=== PATIENT | male | born 1990 | race Caucasian/White ===

== ENCOUNTER 2016-04-18 16:19 | Emergency (ER) | payer OTHER ==
[2016-04-18 16:27] VITALS: BP 148/85
[2016-04-18] MEDS ORDERED: NS 0.9% 1000 ML* 1,000 ML IV ONE (16:34)
[2016-04-18] MEDS ORDERED: Ondansetron INJ* 2 MG/ML VIAL IV ONE (16:34)
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
== END 2016-04-18 17:16 | disposition home or self-care (01) ==
LOC: ED 16:19
DX: B35.3 Tinea pedis (principal); X31.XXXA Exposure to excessive natural cold, initial encounter; Y93.9 Activity, unspecified; Y92.9 Unspecified place or not applicable
CPT/HCPCS: 96374; 99282

== ENCOUNTER 2016-10-28 07:36 | Emergency (ER) | payer OTHER ==
[2016-10-28 07:43] VITALS: BP 126/85
--- NOTE | 2016-10-28 14:57 | ED ---
Skin Complaint - HPI Summary HPI Summary: Patient presents to the ED with CC of right great toe with redness, pain and inflammation to the lateral side of the nail with a possible ingrown toenail. This has been present and worsening over several months. He states he has had this before. Pain is 1/10 until something touches the area which then is 5/10. Denies fevers, sweats, chills or discharge from the area for a concern over infection. He endorses similar episodes of ingrown toenail, but attempts to treat himself at home by various techniques. He states this time, the area over the toe was not going away, and wanted to get it checked out. Denies any other complaints or symptoms at this time. VS stable on arrival. Pulses +2 bilaterally and cap refill < 2 sec. Denies any numbness or tingling throughout the toe or foot. - History of Current Complaint Chief Complaint: EDExtremityLower Time Seen by Provider: 10/28/16 08:40 Stated Complaint: TOE PAIN Hx Obtained From: Patient Onset/Duration: Worse Since - 1 week ago Timing: Constant Onset Severity: Moderate Current Severity: Moderate Pain Intensity: 7 Pain Scale Used: 0-10 Numeric Skin Location: Foot Character: Redness, Painful Aggravating Symptom(s): Nothing Alleviating Symptom(s): Nothing Associated Signs & Symptoms: Negative - Allergy/Home Medications Allergies/Adverse Reactions: Allergies Allergy/AdvReac Type Severity Reaction Status Date / Time No Known Allergies Allergy Verified 04/18/16 16:27 PMH/Surg Hx/FS Hx/Imm Hx Previously Healthy: Yes Respiratory History: Reports: Hx Asthma - exercise induced Psychiatric History: Reports: Hx Anxiety, Hx Depression - Immunization History Hx Pertussis Vaccination: No Immunizations Up to Date: Unable to Obtain/Confirm Infectious Disease History: No Infectious Disease History: Denies: Traveled Outside the [place] in Last 30 Days - Family History Known Family History: Positive: None, Hypertension - Social History Occupation: Employed Full-time Lives: With Family Alcohol Use: Daily Alcohol Amount: 10 /day x 1 year Hx Substance Use: Yes Substance Use Type: Reports: Marijuana Substance Use Comment - Amount & Last Used: occassionally Hx Tobacco Use: Yes Smoking Status (MU): Light Every Day Tobacco Smoker Review of Systems Constitutional: Negative Eyes: Negative ENT: Negative Respiratory: Negative Genitourinary: Negative Positive: no symptoms reported, see HPI Positive: Other - erythema and slightly eddematous area to the latera side of the great right toe resembling an ingrown toenail, with no paronychia or felon Neurological: Negative All Other Systems Reviewed And Are Negative: Yes Physical Exam Triage Information Reviewed: Yes Vital Signs On Initial Exam: Initial Vitals Temp Pulse Resp BP Pulse Ox 97.1 F 59 18 126/85 100 10/28/16 07:40 10/28/16 07:40 10/28/16 07:40 10/28/16 07:40 10/28/16 07:40 Vital Signs Reviewed: Yes Appearance: Positive: Well-Appearing, Well-Nourished Skin: Positive: Other - right toenail - ingrown to the lateral side of the great toe Head/Face: Positive: Normal Head/Face Inspection Eyes: Positive: EOMI, BLANCA, Conjunctiva Clear Neck: Positive: Supple, No Lymphadenopathy Respiratory/Lung Sounds: Positive: Clear to Auscultation, Breath Sounds Present Cardiovascular: Positive: Normal, RRR, Pulses are Symmetrical in both Upper and Lower Extremities Neurological: Positive: Speech Normal Psychiatric: Positive: Normal AVPU Assessment: Alert - Eren Coma Scale Best Eye Response: 4 - Spontaneous Best Motor Response: 6 - Obeys Commands Best Verbal Response: 5 - Oriented Diagnostics - Vital Signs Vital Signs Temp Pulse Resp BP Pulse Ox 10/28/16 07:54 97.1 F 59 16 126/85 100 10/28/16 07:40 97.1 F 59 18 126/85 100 - Laboratory Lab Statement: Any lab studies that have been ordered have been reviewed, and results considered in the medical decision making process. Course/Dx - Course Course Of Treatment: Patient presents with erythema and slightly eddematous area to the lateral side of the great right toe resembling an ingrown toenail, with no paronychia or felon. Discussed with patient treatment options. Patient agrees to have the toenail cut and dislodged from under the skin. Timeout obtained. Wound was cleansed with betadyne. Sterile precations used. 2ml lidocaine without epi used for digital block of the great toe with effect. Maureen forceps used to raise the lateral portion of the nail. Scissors used to cut at the tip of the nail to just above the base of the nailbed. Large amount of nail was dislodged from the skin. Parameters given for care instructions and to try to prevent recurrence. Area was wrapped with a bandage and care instructions given. - Differential Diagnoses - Skin Complaint Differential Diagnoses: Other - felon, paronychia - Diagnoses Provider Diagnoses: Ingrown right big toenail Discharge - Discharge Plan Condition: Stable Disposition: HOME Patient Education Materials: Ingrown Nail (ED) Referrals: Non Staff,Doctor [Primary Care Provider] - Additional Instructions: SUMMARY AND RECOMMENDATIONS Ingrown toenails occur when the lateral nail plate pierces the lateral nail fold. Mild lesions can be treated conservatively, with soaks several times per day and the use of cotton or dental floss to separate the nail plate from the nail fold. Surgical intervention for removal of the involved nail wedge may be required for more severe cases. Apply abx ointment to the toe and wrap with gauze. Do this for 3 days Do not subject the toe to dirty areas such as shoes and socks for 1 week - this may mean you will keep it covered while at work. Keep the nail growth above the area of the skin to try to prevent recurrence Cut the toenail STRAIGHT across.
== END 2016-10-28 09:32 | disposition home or self-care (01) ==
LOC: ED 07:36
DX: L60.0 Ingrowing nail (principal)
CPT/HCPCS: 99281

== ENCOUNTER 2017-01-27 22:11 | Emergency (ER) | payer OTHER ==
[2017-01-27] MEDS ORDERED: NS 0.9% 1000 ML* 1,000 ML IV ONE (23:09)
[2017-01-27] MEDS ORDERED: Metoclopramide IV* 5 MG/ML 2 ML VIAL IV ONE (23:09)
[2017-01-27] MEDS ORDERED: Pantoprazole IV* 40 MG IV ONE (23:09)
[2017-01-27 23:47] LABS: Hematocrit 45 % (42-52); Hemoglobin 15.8 g/dl (14.0-18.0); Mean Corpuscular HGB Conc 35 g/dl (31-36); Mean Corpuscular Hemoglobin 35 pg (27-31); Mean Corpuscular Volume 99 fL (80-94); Mean Platelet Volume 7 um3 (7.4-10.4); Red Blood Count 4.57 10^6/ul (4.0-5.4); Red Cell Distribution Width 15 % (10.5-15); White Blood Count 7.2 10^3/ul (3.5-10.8)
[2017-01-28 00:02] LABS: Albumin 4.6 g/dL (3.2-5.2); BUN/Creatinine Ratio 7.6 (8-20); Calcium 8.9 mg/dL (8.6-10.3); EGFR Non-African American 120.5 (>60); Globulin 2.9 g/dL (2-4); Potassium 3.6 mmol/L (3.5-5.0); Total Bilirubin 0.3 mg/dL (0.2-1.0); Total Protein 7.5 g/dL (6.4-8.9)
--- NOTE | 2017-01-28 06:18 | ED ---
Lonny Briones Jason, scribed for Obi Cha MD on 01/27/17 at 2311 . Abdominal Pain/Male - HPI Summary HPI Summary: This patient is a 26 year old M presenting to [facility] with a chief complaint of stomach pain since 1 hour and 30 minutes ago. The patient states that he vomited blood and includes that it feels like theres something wrong with my stomach. The patient rates the pain 0/10 in severity. Symptoms aggravated by nothing. Symptoms alleviated by nothing. Patient reports right-sided chest pain. Patient denies nausea. Additionally, the patient states he has been consuming alcohol since this morning. - History of Current Complaint Chief Complaint: EDAbdPain Stated Complaint: VOMITED BLOOD,CHEST PAIN Time Seen by Provider: 01/27/17 22:41 Hx Obtained From: Patient Onset/Duration: Gradual Onset, Lasting Hours - Since 1 hour and 30 minutes ago. , Still Present Timing: Constant Pain Intensity: 0 Pain Scale Used: 0-10 Numeric Aggravating Factor(s): Nothing Alleviating Factor(s): Nothing Associated Signs And Symptoms: Positive: Other - stomach discomfort, vomiting ( with blood), and right-sided chest pain. Patient denies nausea - Allergies/Home Medications Allergies/Adverse Reactions: Allergies Allergy/AdvReac Type Severity Reaction Status Date / Time No Known Allergies Allergy Verified 01/27/17 22:18 PMH/Surg Hx/FS Hx/Imm Hx Previously Healthy: No Respiratory History: Reports: Hx Asthma - exercise induced Psychiatric History: Reports: Hx Anxiety, Hx Depression Infectious Disease History: No Infectious Disease History: Denies: Traveled Outside the [place] in Last 30 Days - Family History Known Family History: Positive: Hypertension Negative: Blood Disorder - Social History Alcohol Use: Daily Alcohol Amount: 10 /day x 1 year Hx Substance Use: Yes Substance Use Type: Reports: Marijuana Substance Use Comment - Amount & Last Used: occassionally Hx Tobacco Use: Yes Smoking Status (MU): Light Every Day Tobacco Smoker Review of Systems Positive: Chest Pain - right-sided Positive: Vomiting - with blood, Other - stomach discomfort. Negative: Nausea All Other Systems Reviewed And Are Negative: Yes Physical Exam - Summary Physical Exam Summary: VITAL SIGNS: Reviewed. GENERAL: ~Patient is a well-developed and nourished male who is lying comfortable in the stretcher. Patient is not in any acute respiratory distress. Patient's breath has odor of alcohol. HEAD AND FACE: No signs of trauma. No ecchymosis, hematomas or skull depressions. No sinus tenderness. EYES: PERRLA, EOMI x 2, No injected conjunctiva, no nystagmus. EARS: Hearing grossly intact. Ear canals and tympanic membranes are within normal limits. MOUTH: Oropharynx within normal limits. NECK: Supple, trachea is midline, no adenopathy, no JVD, no carotid bruit, no c- spine tenderness, neck with full ROM. CHEST: Symmetric, no tenderness at palpation LUNGS: Clear to auscultation bilaterally. No wheezing or crackles. CVS: Regular rate and rhythm, S1 and S2 present, no murmurs or gallops appreciated. ABDOMEN: Soft, non-tender. No signs of distention. No rebound no guarding, and no masses palpated. Bowel sounds are normal. RECTAL: brown stool sent to the lab for fecal occult blood test. EXTREMITIES: FROM in all major joints, no edema, no cyanosis or clubbing. NEURO: Alert and oriented x 3. No acute neurological deficits. Speech is normal and follows commands. SKIN: Dry and warm Triage Information Reviewed: Yes Vital Signs On Initial Exam: Initial Vitals Temp Pulse Resp BP Pulse Ox 98.5 F 78 14 149/102 99 01/27/17 22:16 01/27/17 22:16 01/27/17 22:16 01/27/17 22:16 01/27/17 22:16 Vital Signs Reviewed: Yes - Eren Coma Scale Coma Scale Total: 15 Diagnostics - Vital Signs Vital Signs Temp Pulse Resp BP Pulse Ox 01/27/17 22:16 98.5 F 78 14 149/102 99 - Laboratory Result Diagrams: 01/27/17 23:25 01/27/17 23:25 Lab Statement: Any lab studies that have been ordered have been reviewed, and results considered in the medical decision making process. Abdominal Pain Fem Course/Dx - Course Course Of Treatment: This patient is a 26 year old M presenting to [facility] with a chief complaint of stomach pain since 1 hour and 30 minutes ago. The patient states that he vomited blood and includes that it feels like theres something wrong with my stomach. The patient rates the pain 0/10 in severity. Symptoms aggravated by nothing. Symptoms alleviated by nothing. Patient reports right- sided chest pain. Patient denies nausea. Additionally, the patient states he has been consuming alcohol since this morning. Assessment/Plan: In the ED course the patient was given IV fluids. Fecal Occult Blood test result is negative. Patient is awake and comfortably walking with a steady gait. Patient will be discharged and follow up from PCP. The patient is agreeable with this plan. Dx of alcohol intoxication and alcoholic gastritis. - Diagnoses Provider Diagnoses: Alcohol intoxication, Alcoholic gastritis Discharge - Discharge Plan Condition: Stable Disposition: HOME Prescriptions: Metoclopramide TAB* [Reglan TAB*] 10 mg PO Q8H PRN #14 tab PRN Reason: Nausea/Vomiting Pantoprazole TAB (NF) [Protonix TAB (NF)] 40 mg PO DAILY #30 tab Patient Education Materials: Gastritis (ED), Alcohol Intoxication (ED), Abuse of Alcohol (ED) Referrals: Non Staff,Doctor [Primary Care Provider] - Additional Instructions: RETURN TO THE EMERGENCY DEPARTMENT FOR CHANGING OR WORSENING SYMPTOMS. The documentation as recorded by the Lonny edwards Jason accurately reflects the service I personally performed and the decisions made by , Obi Cha MD.
[2017-01-28 06:31] VITALS: BP 138/89
== END 2017-01-28 06:30 | disposition home or self-care (01) ==
LOC: ED 22:11
DX: F10.129 Alcohol abuse with intoxication, unspecified (principal); K29.20 Alcoholic gastritis without bleeding; R11.10 Vomiting, unspecified; R07.9 Chest pain, unspecified; F17.210 Nicotine dependence, cigarettes, uncomplicated
CPT/HCPCS: 36415; 80053; 80320; 82150; 82272; 83690; 83735; 85025; 85610; 85730; 86850; 86900; 86901; 96374; 96375; 99284; G0480; J2765

== ENCOUNTER 2017-05-30 13:54 | Observation (INO) | payer OTHER ==
[2017-05-30] MEDS ORDERED: fentaNYL* 50 MCG/ML 2 ML VIAL (100 MCG VIAL) IV SLOW PU ONE (14:21)
[2017-05-30] MEDS ORDERED: Ondansetron INJ* 2 MG/ML VIAL IV ONE (14:21)
[2017-05-30] MEDS ORDERED: LORazepam INJ* 2 MG/ML 1 ML VIAL ONE (14:33)
[2017-05-30] MEDS ORDERED: LORazepam INJ* 2 MG/ML 1 ML VIAL IV ONE (14:55)
--- NOTE | 2017-05-30 14:57 | RAD ---
HISTORY: Left shoulder injury COMPARISONS: None VIEWS: 3, Frontal internal rotation, external rotation, and outlet views of the left shoulder FINDINGS: BONE DENSITY: Normal. BONES: There is no displaced fracture. JOINTS: There is no arthropathy. ALIGNMENT: There is anterior-inferior dislocation of the humeral head with respect to the glenoid fossa. SOFT TISSUES: Unremarkable. OTHER FINDINGS: None. IMPRESSION: LEFT SHOULDER DISLOCATION
--- NOTE | 2017-05-30 14:59 | RAD ---
INDICATION: Left shoulder pain after a fall COMPARISON: None. TECHNIQUE: Single AP portable view of the chest was obtained. FINDINGS: Image quality is compromised due to the relative inferiority of a portable chest x-ray. The heart and mediastinum exhibit normal size and contour. The lungs are grossly clear. There is no evidence of a large pleural effusion. Left humeral head appears to be displaced medially relative to the bony glenoid labrum on the AP view. IMPRESSION: 1. No radiographic evidence for acute cardiopulmonary abnormality on this portable chest x-ray. 2. Left humeral head appears to be displaced inferiorly and medially relative to the bony glenoid labrum on this AP only view of the chest.
[2017-05-30 15:13] LABS: ABS Basophils 0.1 10^3/ul (0-0.2); ABS Eosinophils 0 10^3/ul (0-0.6); ABS Lymphocytes 1.1 10^3/ul (1.0-4.8); ABS Neutrophils 9.6 10^3/ul (1.5-7.7); ABS Nucleated RBC 0 10^3/ul; Eosinophil % 0.2 % (0-6); Hematocrit 45 % (42-52); Hemoglobin 15.2 g/dl (14.0-18.0); Lymphocyte % 9.1 % (25-47); Mean Corpuscular HGB Conc 34 g/dl (31-36); Mean Corpuscular Hemoglobin 35 pg (27-31); Mean Corpuscular Volume 102 fL (80-94); Nucleated Red Blood Cells % 0; Platelet Count 186 10^3/ul (150-450); Red Blood Count 4.38 10^6/ul (4.0-5.4); Red Cell Distribution Width 14 % (10.5-15); White Blood Count 11.8 10^3/ul (3.5-10.8)
--- NOTE | 2017-05-30 15:21 | RAD ---
Indication: New onset seizure post fall. Comparison: No relevant prior exams available on the [facility] PACS for comparison. Technique: Noncontrast CT vertex of skull through foramen magnum. Report: The sulci, ventricles, and basal cisterns are normal for age. Yuen matter white matter differentiation is preserved without evidence for edema. Reference axial image 14 of 36 there is short segment bilateral symmetric approximate 2 mm transverse thickness isodense to pope matter extra-axial meningeal thickening at the middle cranial fossa. This is a low suspicion nonspecific finding. There is no hyperdense extra-axial collection to indicate extra-axial hematoma. Negative for mass effect. Unremarkable visualized orbital contents. No fracture of the calvarium or skull base evident. Unremarkable scalp. The visualized paranasal sinuses and mastoid air spaces are clear. IMPRESSION: 1. Low suspicion potentially incidental normal finding of minimal prominence of the meninges of the bilateral temporal regions. Consider further assessment with contrast-enhanced MRI given the clinical setting of new onset seizure. 2. No compelling CT evidence for traumatic brain injury.
[2017-05-30 15:24] LABS: INR 0.94 (0.77-1.02)
--- NOTE | 2017-05-30 15:27 | RAD ---
INDICATION: Fall. Seizure. LEFT shoulder injury. COMPARISON: No relevant prior exams available on the [facility] PACS for comparison. TECHNIQUE: Multidetector CT images foramen magnum to lung apices without contrast. Multiplanar reformation. REPORT: Normal vertebral alignment accounting for exam positioning without spondylolisthesis or subluxation at any level. Negative for cervical vertebral body or posterior element fracture. Negative for paravertebral hematoma. IMPRESSION: No CT evidence for traumatic cervical spine injury. Negative exam.
[2017-05-30] MEDS ORDERED: Naloxone* 0.4 MG/ML 1 ML VIAL ONE (16:22)
[2017-05-30] MEDS ORDERED: Midazolam* 1 MG/ML 5 ML VIAL (5 MG) ONE (16:22)
[2017-05-30] MEDS ORDERED: Flumazenil* 0.1 MG/ML 5 ML MDV ONE (16:23)
[2017-05-30 16:43] LABS: Urine Appearance Clear; Urine Blood Negative (Negative); Urine Color Amber; Urine Ketones Trace (Negative); Urine Protein 2+(100 mg/dL) (Negative); Urine Specific Gravity 1.027 (1.010-1.030); Urine Urobilinogen Positive (Negative)
--- NOTE | 2017-05-30 18:11 | RAD ---
INDICATION: Post reduction of dislocated left shoulder COMPARISON: None. TECHNIQUE: 2 views of the left shoulder were obtained. FINDINGS: The adequately corticated bones are in normal alignment. Joint spaces appear maintained. No fracture, dislocation or focal bony abnormality is seen. IMPRESSION: Normal radiograph of the left shoulder. If the patient's symptoms persist, follow-up imaging is recommended.
[2017-05-30] MEDS ORDERED: Albuterol HFA INHALER* 8 gm MDI INH PRN (18:28)
[2017-05-30] MEDS ORDERED: oxyCODONE/Acetamin 5/325 MG* TAB PO PRN (18:29)
[2017-05-30] MEDS ORDERED: NS 0.9% 500 ML* 500 ML IV ONE (18:29)
--- NOTE | 2017-05-30 18:56 | ED ---
Freedom Briones Thomas, scribed for West Parra MD on 05/30/17 at 1459 . Neurological HPI - HPI Summary HPI Summary: The patient is a 27 year old male who was transferred from [facility] urgent care. He brings with him a report that shows he had anterior dislocation to the left shoulder. He had fallen, and in the examination room his left shoulder is slightly deformed and he does not move his left arm. He has an abrasion to his left lower chest. - History of Current Complaint Chief Complaint: EDSeizure Stated Complaint: LEFT SHOULDER INJURY FROM [facility] Time Seen by Provider: 05/30/17 14:01 Hx Obtained From: Patient Onset/Duration: Still Present Timing: Constant Current Severity: Moderate Seizure Severity: Moderate Number of Seizures: 1 - perhaps two Pain Intensity: 10 Pain Scale Used: 0-10 Numeric Syncope Context: Witnessed Frequency: Episodes x___ - 1-2 - Allergy/Home Medications Allergies/Adverse Reactions: Allergies Allergy/AdvReac Type Severity Reaction Status Date / Time No Known Allergies Allergy Verified 01/27/17 22:18 Home Medications: Home Medications Albuterol HFA INHALER* [Ventolin HFA Inhaler*] 1 puff INH Q4H PRN 05/30/17 [ History Confirmed 05/30/17] Bupropion XL* [Wellbutrin XL *] 150 mg PO DAILY 05/30/17 [History Confirmed ] PMH/Surg Hx/FS Hx/Imm Hx Respiratory History: Reports: Hx Asthma - exercise induced Opthamlomology History: Denies: Hx Legally Blind EENT History: Denies: Hx Deafness Neurological History: Denies: Hx Seizures Psychiatric History: Reports: Hx Anxiety, Hx Depression Infectious Disease History: No Infectious Disease History: Denies: Traveled Outside the [place] in Last 30 Days - Family History Known Family History: Positive: Hypertension Negative: Blood Disorder - Social History Alcohol Use: Occasionally Alcohol Amount: 10 /day x 1 year Hx Substance Use: Yes Substance Use Type: Reports: Marijuana Substance Use Comment - Amount & Last Used: occassionally Hx Tobacco Use: Yes Smoking Status (MU): Light Every Day Tobacco Smoker Review of Systems Negative: Fever Positive: Other - L shoulder dislocation Positive: Other - Abrasion Neurological: Other - Seizure All Other Systems Reviewed And Are Negative: Yes Physical Exam - Summary Physical Exam Summary: General: well-appearing, no pain distress Skin: Warm, color reflects adequate perfusion, dry. He has an abrasion to his left lower chest. Head: normal Eyes: EOMI, BLANCA ENT: normal Neck: supple, nontender Respiratory: CTA, breath sounds present Cardiovascular: RRR Abdomen: soft, nontender Bowel: present Musculoskeletal: The left shoulder is slightly deformed and he does not move his left arm. Good sensation, good capillary refill. Neurological: normal, sensory/motor intact, A&O x3 Psychological: affect/mood appropriate Triage Information Reviewed: Yes Vital Signs On Initial Exam: Initial Vitals Temp Pulse Resp BP Pulse Ox 98.6 F 73 18 137/96 99 05/30/17 14:13 05/30/17 14:13 05/30/17 14:13 05/30/17 14:13 05/30/17 14:13 Vital Signs Reviewed: Yes Diagnostics - Vital Signs Vital Signs Temp Pulse Resp BP Pulse Ox 05/30/17 14:13 98.6 F 73 18 137/96 99 - Laboratory Lab Results: Lab Results 05/30/17 05/30/17 05/30/17 Range/Units 14:50 14:50 14:50 WBC (3.5-10.8) 10^3/ul RBC (4.0-5.4) 10^6/ul Hgb (14.0-18.0) g/dl Hct (42-52) % MCV (80-94) fL MCH (27-31) pg MCHC (31-36) g/dl RDW (10.5-15) % Plt Count (150-450) 10^3/ul MPV (7.4-10.4) um3 Neut % (Auto) (38-83) % Lymph % (Auto) (25-47) % [place] % (Auto) (0-7) % Eos % (Auto) (0-6) % Baso % (Auto) (0-2) % Absolute Neuts (auto) (1.5-7.7) 10^3/ul Absolute Lymphs (auto) (1.0-4.8) 10^3/ul Absolute Monos (auto) (0-0.8) 10^3/ul Absolute Eos (auto) (0-0.6) 10^3/ul Absolute Basos (auto) (0-0.2) 10^3/ul Absolute Nucleated RBC 10^3/ul Nucleated RBC % INR (Anticoag Therapy) 0.94 (0.77-1.02) APTT 28.0 (26.0-36.3) seconds Sodium 135 (133-145) mmol/L Potassium TNP Chloride 97 L (101-111) mmol/L Carbon Dioxide 16 L (22-32) mmol/L Anion Gap 22 H (2-11) mmol/L BUN 10 (6-24) mg/dL Creatinine 1.03 (0.67-1.17) mg/dL Est GFR ( Amer) 113.2 (>60) Est GFR (Non-Af Amer) 88.0 (>60) BUN/Creatinine Ratio 9.7 (8-20) Glucose 112 H (70-100) mg/dL Lactic Acid (0.5-2.0) mmol/L Calcium 9.3 (8.6-10.3) mg/dL Magnesium TNP Total Bilirubin 1.30 H (0.2-1.0) mg/dL AST TNP ALT 101 H (7-52) U/L Alkaline Phosphatase 91 (34-104) U/L Total Creatine Kinase 242 H (10-223) U/L CK-MB (CK-2) 2.7 (0.6-6.3) ng/mL Troponin I 0.00 (<0.04) ng/mL C-Reactive Protein 1.14 (< 5.00) mg/L B-Natriuretic Peptide 93 ( - 100) pg/mL Total Protein 7.5 (6.4-8.9) g/dL Albumin 4.5 (3.2-5.2) g/dL Globulin 3.0 (2-4) g/dL Albumin/Globulin Ratio 1.5 (1-3) Lipase 34 (11.0-82.0) U/L TSH 2.45 (0.34-5.60) mcIU/mL Urine Color Urine Appearance Urine pH (5-9) Ur Specific [place] (1.010-1.030) Urine Protein (Negative) Urine Ketones (Negative) Urine Blood (Negative) Urine Nitrate (Negative) Urine Bilirubin (Negative) Urine Urobilinogen (Negative) Ur Leukocyte Esterase (Negative) Urine WBC (Auto) (Absent) Urine RBC (Auto) (Absent) Urine Bacteria (Absent) Hyaline Casts (Absent) Urine Glucose (Negative) Urine Ascorbic Acid (Negative) Salicylates < 2.50 (<30) mg/dL Urine Opiates Screen (None Detect) Acetaminophen < 15 mcg/mL Ur Barbiturates Screen (None Detect) Ur Phencyclidine Scrn (None Detect) Ur Amphetamines Screen (None Detect) U Benzodiazepines Scrn (None Detect) Urine Cocaine Screen (None Detect) U Cannabinoids Screen (None Detect) Serum Alcohol < 10 (<10) mg/dL 05/30/17 05/30/17 05/30/17 Range/Units 14:50 14:50 16:17 WBC 11.8 H (3.5-10.8) 10^3/ul RBC 4.38 (4.0-5.4) 10^6/ul Hgb 15.2 (14.0-18.0) g/dl Hct 45 (42-52) % MCV 102 H (80-94) fL MCH 35 H (27-31) pg MCHC 34 (31-36) g/dl RDW 14 (10.5-15) % Plt Count 186 (150-450) 10^3/ul MPV 9.0 (7.4-10.4) um3 Neut % (Auto) 81.5 (38-83) % Lymph % (Auto) 9.1 L (25-47) % [place] % (Auto) 8.8 H (0-7) % Eos % (Auto) 0.2 (0-6) % Baso % (Auto) 0.4 (0-2) % Absolute Neuts (auto) 9.6 H (1.5-7.7) 10^3/ul Absolute Lymphs (auto) 1.1 (1.0-4.8) 10^3/ul Absolute Monos (auto) 1.0 H (0-0.8) 10^3/ul Absolute Eos (auto) 0 (0-0.6) 10^3/ul Absolute Basos (auto) 0.1 (0-0.2) 10^3/ul Absolute Nucleated RBC 0 10^3/ul Nucleated RBC % 0 INR (Anticoag Therapy) (0.77-1.02) APTT (26.0-36.3) seconds Sodium (133-145) mmol/L Potassium Chloride (101-111) mmol/L Carbon Dioxide (22-32) mmol/L Anion Gap (2-11) mmol/L BUN (6-24) mg/dL Creatinine (0.67-1.17) mg/dL Est GFR ( Amer) (>60) Est GFR (Non-Af Amer) (>60) BUN/Creatinine Ratio (8-20) Glucose (70-100) mg/dL Lactic Acid 13.5 H* (0.5-2.0) mmol/L Calcium (8.6-10.3) mg/dL Magnesium Total Bilirubin (0.2-1.0) mg/dL AST ALT (7-52) U/L Alkaline Phosphatase (34-104) U/L Total Creatine Kinase (10-223) U/L CK-MB (CK-2) (0.6-6.3) ng/mL Troponin I (<0.04) ng/mL C-Reactive Protein (< 5.00) mg/L B-Natriuretic Peptide ( - 100) pg/mL Total Protein (6.4-8.9) g/dL Albumin (3.2-5.2) g/dL Globulin (2-4) g/dL Albumin/Globulin Ratio (1-3) Lipase (11.0-82.0) U/L TSH (0.34-5.60) mcIU/mL Urine Color Urine Appearance Urine pH (5-9) Ur Specific [place] (1.010-1.030) Urine Protein (Negative) Urine Ketones (Negative) Urine Blood (Negative) Urine Nitrate (Negative) Urine Bilirubin (Negative) Urine Urobilinogen (Negative) Ur Leukocyte Esterase (Negative) Urine WBC (Auto) (Absent) Urine RBC (Auto) (Absent) Urine Bacteria (Absent) Hyaline Casts (Absent) Urine Glucose (Negative) Urine Ascorbic Acid (Negative) Salicylates (<30) mg/dL Urine Opiates Screen None detected (None Detect) Acetaminophen mcg/mL Ur Barbiturates Screen None detected (None Detect) Ur Phencyclidine Scrn None detected (None Detect) Ur Amphetamines Screen None detected (None Detect) U Benzodiazepines Scrn None detected (None Detect) Urine Cocaine Screen None detected (None Detect) U Cannabinoids Screen Presumptive positive A (None Detect) Serum Alcohol (<10) mg/dL 05/30/17 05/30/17 05/30/17 Range/Units 16:17 17:30 17:31 WBC (3.5-10.8) 10^3/ul RBC (4.0-5.4) 10^6/ul Hgb (14.0-18.0) g/dl Hct (42-52) % MCV (80-94) fL MCH (27-31) pg MCHC (31-36) g/dl RDW (10.5-15) % Plt Count (150-450) 10^3/ul MPV (7.4-10.4) um3 Neut % (Auto) (38-83) % Lymph % (Auto) (25-47) % [place] % (Auto) (0-7) % Eos % (Auto) (0-6) % Baso % (Auto) (0-2) % Absolute Neuts (auto) (1.5-7.7) 10^3/ul Absolute Lymphs (auto) (1.0-4.8) 10^3/ul Absolute Monos (auto) (0-0.8) 10^3/ul Absolute Eos (auto) (0-0.6) 10^3/ul Absolute Basos (auto) (0-0.2) 10^3/ul Absolute Nucleated RBC 10^3/ul Nucleated RBC % INR (Anticoag Therapy) (0.77-1.02) APTT (26.0-36.3) seconds Sodium (133-145) mmol/L Potassium 3.3 L Chloride (101-111) mmol/L Carbon Dioxide (22-32) mmol/L Anion Gap (2-11) mmol/L BUN (6-24) mg/dL Creatinine (0.67-1.17) mg/dL Est GFR ( Amer) (>60) Est GFR (Non-Af Amer) (>60) BUN/Creatinine Ratio (8-20) Glucose (70-100) mg/dL Lactic Acid 0.9 (0.5-2.0) mmol/L Calcium (8.6-10.3) mg/dL Magnesium 1.8 L Total Bilirubin (0.2-1.0) mg/dL AST 128 H ALT (7-52) U/L Alkaline Phosphatase (34-104) U/L Total Creatine Kinase (10-223) U/L CK-MB (CK-2) (0.6-6.3) ng/mL Troponin I (<0.04) ng/mL C-Reactive Protein (< 5.00) mg/L B-Natriuretic Peptide ( - 100) pg/mL Total Protein (6.4-8.9) g/dL Albumin (3.2-5.2) g/dL Globulin (2-4) g/dL Albumin/Globulin Ratio (1-3) Lipase (11.0-82.0) U/L TSH (0.34-5.60) mcIU/mL Urine Color [place]rina Urine Appearance Clear Urine pH 8.0 (5-9) Ur Specific [place] 1.027 (1.010-1.030) Urine Protein 2+(100 mg/dl) A (Negative) Urine Ketones Trace A (Negative) Urine Blood Negative (Negative) Urine Nitrate Negative (Negative) Urine Bilirubin 1+ A (Negative) Urine Urobilinogen Positive A (Negative) Ur Leukocyte Esterase Negative (Negative) Urine WBC (Auto) Trace(0-5/hpf) (Absent) Urine RBC (Auto) 3+(>10/hpf) A (Absent) Urine Bacteria 1+ A (Absent) Hyaline Casts Present A (Absent) Urine Glucose Negative (Negative) Urine Ascorbic Acid * A (Negative) Salicylates (<30) mg/dL Urine Opiates Screen (None Detect) Acetaminophen mcg/mL Ur Barbiturates Screen (None Detect) Ur Phencyclidine Scrn (None Detect) Ur Amphetamines Screen (None Detect) U Benzodiazepines Scrn (None Detect) Urine Cocaine Screen (None Detect) U Cannabinoids Screen (None Detect) Serum Alcohol (<10) mg/dL Result Diagrams: 05/30/17 14:50 05/30/17 17:31 Lab Statement: Any lab studies that have been ordered have been reviewed, and results considered in the medical decision making process. - Radiology CXR Xray Interpretation: Positive (See Comments) - 1. No radiographic evidence for acute cardiopulmonary abnormality on this portable chest x-ray. 2. Left humeral head appears to be displaced inferiorly and medially relative to the bony glenoid labrum on this AP only view of the chest. Dr. Parra has reviewed this report. Radiology Interpretation Completed By: Radiologist Shoulder XR 14:30 Xray Interpretation: Positive (See Comments) - Left shoulder dislocation. Dr. Parra has reviewed this report. Radiology Interpretation Completed By: Radiologist Shoulder XR 16:50 Xray Interpretation: No Acute Changes - IMPRESSION: Normal radiograph of the left shoulder. If the patient's symptoms persist, follow-up imaging is recommended. Dr. Parra has reviewed this report. Radiology Interpretation Completed By: Radiologist - CT CT Brain CT Interpretation: No Acute Changes - 1. Low suspicion potentially incidental normal finding of minimal prominence of the meninges of the bilateral temporal regions. Consider further assessment with contrast-enhanced MRI given the clinical setting of new onset seizure. 2. No compelling CT evidence for traumatic brain injury. Dr. Parra has reviewed this report. CT Interpretation Completed By: Radiologist CT Cervical Spine CT Interpretation: No Acute Changes - IMPRESSION: No CT evidence for traumatic cervical spine injury. Negative exam. Dr. Parra has reviewed this report. CT Interpretation Completed By: Radiologist - Additional Comments Diagnostic Additional Comments: MRI Brain--ordered at time of admission. Course/Dx - Course Course Of Treatment: HAD SEIZURE IN ED. NO HX SEIZURES. DISCUSSED WITH DR GONZALEZ WHO SAW THE PATIENT IN THE ED. MODERATE SEDATION AND SHOULDER REDUCTION DONE BY MYSELF. ADMIT HOSPITALIST STABLE. - Diagnoses Provider Diagnoses: New onset seizure, Dislocation of shoulder, left, closed - Physician Notifications Discussed Care Of Patient With: Yusra Gonzalez Time Discussed With Above Provider: 16:59 Instructed by Provider To: Other - Dr. Gonzalez, neurology, recommends an MRI Brain. Dr. Rodriguez will admit the patient. - Critical Care Time Critical Care Time: 30-74 min Discharge - Sign-Out/Discharge Documenting (check all that apply): Discharge - admitted - Discharge Plan Condition: Stable Disposition: ADMITTED TO [facility] - Billing Disposition and Condition Condition: STABLE [place] [place] The documentation as recorded by the Freedom edwards Thomas accurately reflects the service I personally performed and the decisions made by me, West Parra MD.
--- NOTE | 2017-05-30 21:20 | RAD ---
HISTORY: No onset seizure. COMPARISONS: Same day CT of the brain that shows questionable bitemporal meningeal thickening. TECHNIQUE: The following sequences were obtained of the head: Sagittal T1-weighted images, axial T2-weighted images, axial FLAIR images, axial susceptibility weighted images, axial T1-weighted images. Additionally, axial diffusion-weighted images were obtained with calculated apparent diffusion coefficients.. FINDINGS: HEMORRHAGE/INFARCT: There is no hemorrhage or acute infarct. MASSES/SHIFT: There is no mass or shift. EXTRA-AXIAL SPACES/MENINGES: There are no extra-axial fluid collections or abnormal thickening of the meninges corresponding to the same day CT findings. SULCI AND VENTRICLES: The sulci and ventricles are normal in size and position for the patient's stated age. CEREBRUM: At the occipital lobe there is a focus of subcortical white matter T2 bright hyperintensity measuring 7 mm in greatest axial dimension (image 11 of 28 on the T2 weighted images). The pope-white matter differentiation is otherwise adequately maintained. There are no MRI findings consistent with mesial temporal lobe sclerosis. BRAINSTEM: There are no focal parenchymal abnormalities. CEREBELLUM: There are no focal parenchymal abnormalities. The cerebellar tonsils are normal in size and position. SELLA: The sella is normal. PINEAL: The pineal region is clear. CP ANGLE/TEMPORAL BONES: The labyrinthine structures are grossly normal. VESSELS: Normal flow-voids are noted within the visualized vertebral vasculature. DIFFUSION ABNORMALITIES: There are no diffusion abnormalities. PARANASAL SINUSES/MASTOIDS: The paranasal sinuses are clear. ORBITS: The orbits are unremarkable. BONES AND SOFT TISSUE: No bone or soft tissue abnormalities are noted. IMPRESSION: 1. IN THE SUBCORTICAL WHITE MATTER OF THE RIGHT OCCIPUT IS A 7 MM T2 BRIGHT FOCUS THAT WOULD NOT NORMALLY BE EXPECTED IN A 27-YEAR-OLD PATIENT. DIFFERENTIAL INCLUDES AN INFECTIOUS OR INFLAMMATORY ETIOLOGY INCLUDING DEMYELINATING DISEASE. THE LATTER CAN BE FURTHER CHARACTERIZED CONTRAST-ENHANCED MRI OF THE BRAIN. 2. Otherwise the MRI of the brain is normal.
--- NOTE | 2017-05-30 22:02 | CONS ---
NEUROLOGY CONSULTATION: DATE OF CONSULT: 05/30/17 REQUESTING PHYSICIAN: Dr. West Parra. REASON FOR CONSULT: New-onset seizure. HISTORY OF PRESENT ILLNESS: Jose Daniel Ngo is a 27-year-old man with a history of depression and asthma, who presented to the emergency department from [facility] this morning with a dislocated left shoulder. He reports that he woke up and still felt groggy and simply lost his balance and fell and stretched out his left arm at which point, he dislocated his shoulder. He went to [facility] thinking may be able to help him there, but he was subsequently sent here. He then experienced a generalized tonic-clonic seizure, which was witnessed by Dr. Parra and received 2 mg of Ativan. He was postictal for a period of time afterward and then once he came around and they obtained more history, he admitted to some heavy alcohol use and recently trying to cut back on that. To me, he says that he has more been drinking about 6 drinks a day of liquor and he is fairly starting that at 6 shots a day. His last drink was 2 days ago. Prior to that, he had been drinking upwards of 15 drinks per day, but had a difficult time saying how long it had been that he has been drinking this heavily. In addition to this, he was treated with bupropion for his depression, which he had been on previously and then stopped and restarted about 2 months ago. He takes 150 mg daily. Finally, he states that he has had 3 or 4 nights of poor sleep where he estimates he has only been getting about 3 hours a night. Otherwise, he denies any recent illnesses. No chest pain, shortness of breath, or joint pains prior to the onset of the shoulder injury. At the time of my evaluation, he is sleepy secondary to having received Versed for conscious sedation for reduction of his dislocated shoulder. In terms of epilepsy risk factors, he believes he was born on time. He has a bachelor's degree in music composition and went to a grad school for that here at [place] [employer] as well, but did not finish that program. He denies any head injury with loss of consciousness or encephalitis or meningitis history. There is no known family history of epilepsy. PAST MEDICAL HISTORY: Depression, asthma. PAST SURGICAL HISTORY: [place] tooth extraction. MEDICATIONS: 1. Bupropion 150 mg daily. 2. Albuterol inhaler. ALLERGIES: No known drug allergies. FAMILY HISTORY: No history of seizures as mentioned. SOCIAL HISTORY: He lives with 2 roommates. He is currently working as a bouncer at a bar. He smokes about a half a pack a day of cigarettes. Alcohol use as stated above. He also admits to occasional cannabis use, but denies any other illicit substances. REVIEW OF SYSTEMS: As per the HPI, otherwise negative. PHYSICAL EXAM: Vital Signs: Temperature 98.6, blood pressure 137/96, heart rate 73, oxygen saturation 99% on room air. In general examination, he is sleepy and when I begin discussing the factors which may have led to his seizures, he begins to drift of to sleep and needs to be re- awakened. His heart is in a regular rate and rhythm with no murmurs, rubs, or gallops. Lungs are clear to auscultation bilaterally. He did have some healing lacerations over his forearms and some scattered bruises. On neurologic exam, he is fully awake, alert, and oriented. His speech is fluent without dysarthria or aphasia. He does appear slightly anxious. Pupils are equal, round, and reactive from 4 to 2 mm bilaterally. Versions are full without nystagmus. North are full to confrontation. Facial sensation and musculature is full and symmetric. Hearing is intact to voice. Palate elevates symmetrically and tongue is midline. On motor examination, he has normal bulk and tone in the upper and lower extremities. The left upper extremity was not tested aside from hand primer assembler secondary to his recent shoulder dislocation; otherwise, his strength was full throughout. Sensation is intact to light touch throughout. Reflexes were 2+ throughout with downgoing toes. [id number] is intact without ataxia on the right. We did not ambulate him. DIAGNOSTIC STUDIES/LAB DATA: Laboratory data collected after his seizures showed an elevated white count of 11.8, normal hematocrit and hemoglobin and platelet count. His initial lactate after the seizure was 13.5. Normal renal function. Normal sodium. Total bilirubin was 1.3, ALT slightly elevated at 101 , AST not able to be performed. His CK was slightly elevated at 242. AST was redrawn and is 128. His urine was notable for 2+ protein, trace ketones, 1+ bilirubin, positive urobilinogen, 3+ rbc's, 1+ bacteria, and the presence of hyaline cast. His toxicology screen was positive for cannabinoids, but otherwise negative. Serum alcohol was less than 10. His head CT was personally reviewed and to me appears to be a normal study, but the radiologist's interpretation indicates that on slice 14 of the axial images , there is short segment bilateral symmetric approximate 2-mm transverse thickness pope matter extraaxial meningeal thickening. In the impression , he felt this was a low suspicion potentially incidental normal finding, but recommended further assessment with contrast-enhanced MRI given the new onset seizure. IMPRESSION: Jose Daniel Ngo is a 27-year-old man, who presented to the emergency department with a dislocated shoulder after what he says was a fall at home secondary to losing his balance and then experienced a new onset generalized tonic- clonic seizure. His history is otherwise notable for excessive alcohol intake, which he has recently been trying to cut down on, but is still excessive at 6 drinks a day as well as use of bupropion and recent sleep deprivation. All of these factors could contribute to lowering his seizure threshold and the fact that he went 2 days without a drink, similarly could have provoked a seizure in him. I think that his CT scan is normal and given the history, I am not suspicious for another etiology for seizure at this time, but given the radiologist's interpretation, I think that he should have followup with an MRI scan, which is planned for this evening. I would not start any medication on him and I briefly discussed with him that he should probably stop the bupropion and change to a different antidepressant, but since he was still quite sleepy after receiving Versed for his shoulder, I do not think that he heard much of this information. I also discussed with him the driving restriction in [facility] and that he cannot drive for at least 6 months. I also discussed the alcohol intake with him in terms of lowering the seizure threshold. I should see him in my office in followup and he should be given my office number on his discharge from the emergency department as well. If his MRI scan is normal, then I see no reason to keep him here and he does not need any antiepileptic medication at this time. [id number] #: [id number] [facility]
--- NOTE | 2017-05-30 22:27 | HP ---
ADMISSION HISTORY AND PHYSICAL: DATE OF ADMISSION: 05/30/17 PRIMARY CARE PHYSICIAN: Dr. Henry Breen in [place]. MY ATTENDING FOR TODAY: Dr. Jolie Rodriguez.* (DICTATED BY JG LEWIS NP) HISTORY OF PRESENT ILLNESS: This is a 27-year-old male patient who reports stepping into bed this morning and losing his balance, falling forward with his left arm outstretched resulting in a shoulder dislocation. The patient initially went to [facility] and he was promptly sent to the emergency department for closed reduction of his shoulder. After undergoing that procedure, the patient had a witnessed seizure at approximately 5:53. The patient's nursing notes state that was witnessed as a grand mal seizure, tonic- clonic in nature. Dr. Parra from the emergency department promptly came into room. The patient was given 2 mg of IV Ativan. The seizure broke spontaneously. He is moderately postictal right now, appears sleepy and yawning ; however, he is alert and appropriate. He is A and O x3. He is not complaining of any headache or dizziness. No fever, fatigue, or chills. No shortness of breath, no chest pain, no nausea, no vomiting. No urinary complaints. No arthralgias or myalgias and no further constitutional complaints. The patient's only complaint is he is a bit sore from the shoulder reduction; however, that pain is well controlled. PAST MEDICAL HISTORY: Significant for asthma and depression. PAST SURGICAL HISTORY: Significant for oral surgery at age 14, right foot calcaneal fracture, and wisdom teeth extraction. FAMILY HISTORY: He has a mother with MS. SOCIAL HISTORY: The patient smokes half-a-pack of cigarettes per day for 4 years now. He states he has 5 to 6 alcoholic drinks per day and does smoke marijuana occasionally. MEDICATIONS: At home include: 1. Bupropion 150 mg daily. 2. Albuterol metered-dose inhaler 1 puff q.4 hours as needed for shortness of breath. ALLERGIES: He has no known drug allergies. SOCIAL HISTORY: His medical healthcare proxy in emergency contact is his mother , Charlene. DIAGNOSTIC STUDIES/LAB DATA: Dr. Yusra Meyer was consulted on this patient and is suggesting MRI. He already had a CAT scan while he was in the emergency department. The CAT scan reading shows: 1. Low suspicion, potentially incidental normal finding of a minimal prominence of the meninges of the bilateral temporal regions, consider further assessment of contrast enhanced MRI given the clinical setting of new onset seizure. 2. No compelling CT evidence of traumatic brain injury. Shoulder x-rays, initial x-ray prereduction shows an anterior inferior location of the humeral head with respect to the glenoid fossa. His postreduction x-ray shows normal radiograph of the left shoulder. Chest x-ray shows no radiographic evidence of any acute cardiopulmonary abnormality. Laboratories, WBCs 11.8, RBCs 4.38, hemoglobin 15.2, hematocrit 45, MCV 102, MCH 35, platelets 186. Sodium 135, potassium 3.3, chloride 97, CO2 16, anion gap is 22, BUN 10, creatinine 1.03, GFR is 88, glucose 112. Lactic acid initially was 13.5, repeat is 0.9; calcium 9.3; magnesium 1.8. Bilirubin 1.30, AST 128, ALT 101, alk phos 91, total creatinine kinase 242, CK-MB is 2.7. Troponin is negative at 0.00. CRP is 1.14. BNP is 93. Total protein 7.5, albumin 4.5, globulin 3.0, lipase 34, TSH is 2.45. IMPRESSION: This is a 27-year-old male patient who sustained a mechanical fall today and subsequently dislocating the left shoulder, which has been corrected, but then had a witnessed tonic-clonic seizure in the emergency department, now being seen by Neurology. PLAN: The patient has been admitted to observation service. The patient will have an MRI of the head based on the findings from the CAT scan. Dr. Yusra Meyer has already been consulted and is in agreement with completing the MRI of the brain. If there are no new findings on the MRI, the patient may be discharged to home with no medications at this time. He will follow up with Dr. Meyer as an outpatient. For now, we will keep the patient n.p.o. He does have IV fluids running. His lactic acid is returning to normal. He does have some other electrolyte disturbances. However, the lab work was drawn immediately after the seizure and will likely go back to normal on its own. If the patient is still symptomatic or has any further seizure activity, we may decide to keep him longer and recheck laboratories and initiate medications for seizure prophylaxis. The rest of the patient's course will be determined by further diagnostics, laboratories, and any other input from other providers as warranted during this admission. DVT prophylaxis, the patient is ambulatory and on observation only. He can have SCDs while he is lying in bed and he is a full code. JG LEWIS, PERCUSSION INSTRUMENT REPAIRER [id number]/[facility] #: [id number] [facility] CAMPUSLevi
--- NOTE | 2017-05-31 07:26 | PN ---
Subjective Date of Service: 05/31/17 Interval History: Mr. Ngo denies complaint and is eager for discharge. Objective Active Medications: Albuterol (Ventolin Hfa Inhaler*) 1 puff INH Q4H PRN Oxycodone/Acetaminophen (Percocet 5/325 Tab*) 1 tab PO Q4H PRN Vital Signs: Temp Pulse Resp BP Pulse Ox 98.4 F 74 16 129/72 100 05/31/17 03:32 05/31/17 03:32 05/31/17 03:32 05/31/17 03:32 05/31/17 03:32 Oxygen Devices in Use Now: None Appearance: Male standing up in room in NAD Eyes: No Scleral Icterus Ears/Nose/Mouth/Throat: Mucous Membranes Moist Neck: Trachea Midline Respiratory: Symmetrical Chest Expansion and Respiratory Effort, Clear to Auscultation Cardiovascular: NL Sounds; No Murmurs; No JVD, No Edema Abdominal: NL Sounds; No Tenderness; No Distention Lymphatic: No Cervical Adenopathy Extremities: No Edema Skin: No Rash or Ulcers Neurological: Alert and Oriented x 3, NL Muscle Strength and Tone Nutrition: Taking PO's Result Diagrams: 05/30/17 14:50 05/30/17 17:31 Additional Lab and Data: . Assess/Plan/Problems-Billing Assessment: Mr. Ngo is a 27 yo M with no significant PMH who was admitted on 05/30/17 after a fall with shoulder dislocation who had a subsequent 1st seizure in ED, now with abnormal MRI. - Patient Problems (1) Seizure Comment: - MRI abnormal - Appreciate neurology consultation.. (2) Shoulder dislocation Comment: - Keep arm in sling and follow up with orthopedics for physical therapy. (3) Alcohol abuse Comment: - Advised to avoid alcohol. - SW consulted to provide more information about AA and other supports in the community. (4) DVT prophylaxis Comment: - Early mobility. (5) Full code status Comment: Status and Disposition: OBV. Discharge to home.
[2017-05-31 11:26] VITALS: BP 140/87
--- NOTE | 2017-05-31 15:50 | DS ---
DISCHARGE SUMMARY: DATE OF ADMISSION: 05/30/17 DATE OF DISCHARGE: 05/31/17 PRIMARY CARE PHYSICIAN: None. ATTENDING PHYSICIAN: Julio Castillo MD * (dictation provided by Charo Cr NP). PRIMARY DIAGNOSES: 1. Seizure (new onset). 2. Left shoulder dislocation (status post resetting). 3. Abnormal MRI. MEDICATION AT THE TIME OF DISCHARGE: Bupropion XL 150 mg p.o. daily. HOSPITAL COURSE: Mr. Ngo is a 27-year-old male with no significant past medical history, who presented to the hospital on 05/30/17 after a fall at home. Please see the dictated H and P from Tasha Sarmiento NP, for complete details. In brief, the patient had fallen onto his left arm and dislocated his shoulder. He originally went to [facility] and then was sent to the emergency room for closed reduction of his shoulder. After that procedure, the patient had a witnessed seizure at approximately 5:53 p.m. It was a grand mal seizure, tonic- clonic in nature. The patient's seizure broke spontaneously with Ativan. Mr. Ngo' workup thus far has shown that his labs are remarkable only for lactic acid of 13.5, which resolved after the seizure. He had no evidence of an infection. His cannabinoid screen was positive for the fall. In addition to the shoulder x-ray, he also had a chest x-ray, which showed "no radiographic evidence for acute cardiopulmonary abnormality in this portable chest. Left humeral head appears displaced inferiorly and medially relative to the bony glenoid labrum on this AP only view of the chest." CT brain showed "low suspicion, potentially incidental normal finding of minimal prominence of the meninges of the bilateral temporal regions. Consider further assessment with contrast enhanced MRI, given the clinical setting of new onset seizure." Mr. Ngo did go on for an MRI of brain, which showed the following: "In the subcortical white matter of the right occiput is a 7 mm T2 bright focus that would not normally be expected in a 27-year-old patient. Differential includes an infectious or inflammatory etiology including demyelinating disease. The latter can be further characterized with contrast enhanced MRI of the brain." The patient was seen in consultation by Dr. Yusra Meyer from Neurology who recommended that the MRI be performed. She has reviewed the images of the MRI and states that she does feel that it is abnormal, but perhaps an incidental finding at this point and not directly related to his seizure activity. She recommends that the patient have a contrast enhanced MRI; however, the patient does not want to stay in the hospital for that and prefers to follow up with her directly outpatient. Suspected that his seizure perhaps was related to his excessive alcohol intake. He has been advised to decrease alcohol intake and has consultation with social work regarding services such as AA in the community. Mr. Ngo is medically stable for discharge to home and follow up with Dr. Meyer and orthopedic services. DISPOSITION: Home. DIET: Regular. ACTIVITY: As tolerated. FOLLOWUP PLANS: 1. Please follow up with orthopedic services regarding reevaluation of shoulder and possible physical therapy. 2. Please follow up with Dr. Meyer regarding abnormal MRI. Dr. Meyer's office will call the patient directly. 3. Please obtain a primary care physician and I have alerted our office to try to assist him with that. TIME SPENT: Approximately 60 minutes was spent in discharge of this patient, more than half that time was spent with the patient at the bedside reviewing the events leading up to this hospitalization, performing the physical examination, and reviewing my plan of care. CHARO CR NP [id number]/[facility] #: [id number] ADOLPH
== END 2017-05-31 11:45 | disposition home or self-care (01) ==
LOC: ED 13:54 → MED 17:43
PROVIDERS: ADMIT Internal Medicine; ATTEND Internal Medicine
DX: R56.9 Unspecified convulsions (principal); S43.005A Unspecified dislocation of left shoulder joint, initial encounter; R93.8 Abnormal findings on diagnostic imaging of other specified body structures; S20.312A Abrasion of left front wall of thorax, initial encounter; W19.XXXA Unspecified fall, initial encounter; Y92.89 Other specified places as the place of occurrence of the external cause; F17.210 Nicotine dependence, cigarettes, uncomplicated; F10.10 Alcohol abuse, uncomplicated
CPT/HCPCS: 23650; 36415; 70450; 70551; 71045; 72125; 80053; 80307; 80320; 80329; 81003; 81015; 82550; 82553; 83605; 83690; 83735; 83880; 84443; 84484; 85025; 85610; 85730; 86140; 87086; 96374; 96375; 99285; A9270-GY; G0378; G0480; J2060; J2250; J2310; J2405; J3010